=== PATIENT | male | born 1960 | race African-American/Black ===

== ENCOUNTER 2020-11-05 11:15 | Inpatient (IN) ==
[2020-11-05] MEDS ORDERED: HYDROmorphone 2 MG/1 ML VIAL IV ONE (11:16)
[2020-11-05] MEDS ORDERED: BIVALIRUDIN 250 MG VIAL IV ONE (11:16)
[2020-11-05] MEDS ORDERED: ASPIRIN 325 MG TABLET PO ONE (11:16)
[2020-11-05] MEDS ORDERED: TICAGRELOR 90 MG TABLET PO ONE (11:16)
[2020-11-05] MEDS ORDERED: MIDAZOLAM 2 MG/2 ML VIAL IV ONE (11:16)
[2020-11-05] MEDS ORDERED: diphenhydrAMINE 50 MG/1 ML VIAL IV ONE (11:16)
[2020-11-05] MEDS ORDERED: diphenhydrAMINE CAP 25 MG CAPSULE PO PRN (11:17)
[2020-11-05] MEDS ORDERED: ACETAMINOPHEN 325 MG TABLET PO PRN (11:17)
[2020-11-05] MEDS ORDERED: MAGNESIUM SULF RIDER 2 GM in PREMIX 1 EACH IV PRN (11:17)
[2020-11-05] MEDS ORDERED: PROMETHAZINE 25 MG TABLET PO PRN (11:17)
[2020-11-05] MEDS ORDERED: ONDANSETRON 4 MG/2 ML VIAL IV PRN (11:17)
[2020-11-05] MEDS ORDERED: hydrALAZINE 20 MG/1 ML VIAL IV PRN (11:17)
[2020-11-05] MEDS ORDERED: MORPHINE 4 MG/1 ML VIAL IV PRN (11:17)
[2020-11-05] MEDS ORDERED: ZALEPLON 5 MG CAPSULE PO PRN (11:17)
[2020-11-05] MEDS ORDERED: DOCUSATE SODIUM 100 MG CAPSULE PO PRN (11:17)
[2020-11-05] MEDS ORDERED: ALUMINUM/MAGNES/SIMETH MAX STR 30 ML UDCUP PO PRN (11:17)
[2020-11-05] MEDS ORDERED: POTASSIUM CHLORIDE 20 MEQ TABLET PO PRN (11:17)
[2020-11-05] MEDS ORDERED: guaiFENesin/DM ER 600-30 MG TABLET PO PRN (11:17)
[2020-11-05] MEDS ORDERED: MAGNESIUM SULF RIDER 4 GM in PREMIX 1 EACH IV PRN (11:17)
[2020-11-05] MEDS: SODIUM CHLORIDE 0.9% 1,000 ML IV SCH ×2 (13:59→20:49)
[2020-11-05 14:58] LABS: CKMB % 12.7 %
[2020-11-05] MEDS: ALBUTEROL 2.5 MG/3 ML NEB RESP TX SCH ×2 (15:00→19:19)
[2020-11-05 15:01] LABS: Troponin I 9.63 NG/ML (0.00-0.045)
[2020-11-05 17:49] LABS: CKMB % 16.1 %
[2020-11-05] MEDS: ROSUVASTATIN 20 MG TABLET PO SCH (21:58)
[2020-11-05] MEDS: TICAGRELOR 90 MG TABLET PO SCH (21:58)
[2020-11-06] MEDS: ALBUTEROL 2.5 MG/3 ML NEB RESP TX SCH ×4 (00:11→19:21)
[2020-11-06] MEDS: SODIUM CHLORIDE 0.9% 1,000 ML IV SCH ×2 (04:40→14:30)
[2020-11-06 04:59] LABS: Basophils % 0.2 % (0.0-0.8); Eosinophils % 0.5 % (0.00-10.9); Hemoglobin 12.1 GM/DL (14.0-18.0); Immature Granulocytes % 0.2 %; Immature Granulocytes Absolute 0.01 #; Lymphocytes # 1.1 10*3/uL (1.4-4.0); Lymphocytes % 19.5 % (21.2-54.2); Mean Corpuscular Volume 93.8 FL (87-102); Mean Platelet Volume 12.7 FL (9.6-12.0); Monocytes % 8.7 % (1.7-12.7); Neutrophils % 70.9 % (38.7-73.9); Platelet Count 141 T/CUMM (130-400); Red Blood Count 4.16 MC/CUMM (3.8-5.5); Red Cell Distribution Width 13.4 % (9.3-17.3); White Blood Count 5.6 T/CUMM (4-12)
[2020-11-06 05:20] LABS: Hypochromasia 1+; Microcytosis 1+
[2020-11-06 05:37] LABS: CKMB % 7.8 %; Calcium 8.5 MG/DL (8.5-10.1); Osmolality,Calculated 275.5 MOS/KG (273-304); Risk Ratio 3.01; VLDL CHOLESTEROL 53.2 MG/DL
[2020-11-06 05:38] LABS: Troponin I 24.8 NG/ML (0.00-0.045)
[2020-11-06] MEDS: METOPROLOL SUCCINATE XL 50 MG TABLET PO SCH (09:31)
[2020-11-06] MEDS: PANTOPRAZOLE 40 MG TABLET PO SCH (09:31)
[2020-11-06] MEDS: TICAGRELOR 90 MG TABLET PO SCH ×2 (09:31→21:01)
[2020-11-06] MEDS: ASPIRIN EC 81 MG TABLET PO SCH (09:31)
[2020-11-06] MEDS: ROSUVASTATIN 20 MG TABLET PO SCH (21:01)
[2020-11-07] MEDS: ALBUTEROL 2.5 MG/3 ML NEB RESP TX SCH ×2 (00:05→07:06)
[2020-11-07 08:16] VITALS: BP 127/80
[2020-11-07] MEDS: SODIUM CHLORIDE 0.9% 1,000 ML IV SCH (08:22)
[2020-11-07 08:46] LABS: Basophils % 0.2 % (0.0-0.8); Eosinophils # 0.1 10*3/uL (0.0-0.87); Eosinophils % 0.9 % (0.00-10.9); Hematocrit 40.1 VOL% (42.0-52.0); Hemoglobin 13.1 GM/DL (14.0-18.0); Immature Granulocytes % 0.2 %; Immature Granulocytes Absolute 0.01 #; Lymphocytes # 1.4 10*3/uL (1.4-4.0); Lymphocytes % 24.8 % (21.2-54.2); Mean Corpuscular HGB Conc 32.7 GM/DL (32-36); Mean Corpuscular Volume 90.3 FL (87-102); Monocytes % 8.3 % (1.7-12.7); Neutrophils % 65.6 % (38.7-73.9); Red Blood Count 4.44 MC/CUMM (3.8-5.5); Red Cell Distribution Width 13.4 % (9.3-17.3); White Blood Count 5.5 T/CUMM (4-12)
[2020-11-07 08:53] LABS: Platelet Count 111 T/CUMM (130-400)
[2020-11-07 09:10] LABS: Hypochromasia 1+; Microcytosis 1+
[2020-11-07 09:12] LABS: CKMB % 1.5 %; Calcium 8.7 MG/DL (8.5-10.1); Osmolality,Calculated 276.5 MOS/KG (273-304)
[2020-11-07 09:13] LABS: Troponin I 7.89 NG/ML (0.00-0.045)
[2020-11-07] MEDS: TICAGRELOR 90 MG TABLET PO SCH (09:53)
[2020-11-07] MEDS: ASPIRIN EC 81 MG TABLET PO SCH (09:53)
[2020-11-07] MEDS: METOPROLOL SUCCINATE XL 50 MG TABLET PO SCH (09:53)
[2020-11-07] MEDS: PANTOPRAZOLE 40 MG TABLET PO SCH (09:53)
== END 2020-11-07 10:56 | disposition home or self-care (01) | DRG 247 ==
LOC: N.CL 11:15 → N.TELES 11:17 → N.CL 11:18 → N.TELES 13:39
PROVIDERS: ADMIT Internal Medicine Cardiovascular Disease; ATTEND Internal Medicine Cardiovascular Disease
PROC: CLCCHCL (ICD-10-PCS; 2020-11-05 11:45)